=== PATIENT | female | born 1940 | race Caucasian/White ===

== ENCOUNTER 2020-10-20 10:10 | Inpatient (IN) ==
[2020-10-20] MEDS ORDERED: 0.9 % Sodium Chloride 1,000 ML IVC ONE ×3 (10:30→15:40)
[2020-10-20 11:13] LABS: Bacteria,Urine Many per hpf (None-Few); Bilirubin,Urine Negative (Negative); Blood,Urine Negative (Negative); Clarity,Urine Turbid (Clear); Color,Urine Yellow (Yellow); Glucose,Urine (UA) Normal (Normal); Hyaline Casts,Urine Few per lpf (None Seen); Ketones,Urine Negative (Negative); Leukocyte Esterase,Urine Trace (Negative); Mucus,Urine Few per lpf (None-Few); Nitrite,Urine Negative (Negative); PH,Urine 5.5 pH Units (5.0-8.0); Protein,Urine 30 mg/dL (Neg-Trace); RBC,Urine 0-3 per hpf (0-3); Specific Gravity,Urine 1.013 (1.010-1.025); Urobilinogen,Urine Normal (Normal)
[2020-10-20] MEDS ORDERED: cefTRIAXone 1,000 MG in 0.9 % Sodium Chloride Mini Bag 100 ML IVPB ONE (11:44)
[2020-10-20 11:53] LABS: Adenovirus Not Detected (Not Detect); Bordetella Pertussis Not Detected (Not Detect); Chlamydophila pneumoniae Not Detected (Not Detect); Coronavirus 229E Not Detected (Not Detect); Coronavirus HKU1 Not Detected (Not Detect); Coronavirus NL63 Not Detected (Not Detect); Coronavirus OC43 Not Detected (Not Detect); Human Metapneumovirus Not Detected (Not Detect); Human Rhinovirus/Enterovirus Not Detected (Not Detect); Influenza A Subtype 2009 H1 Not Detected (Not Detect); Influenza B Not Detected (Not Detect); Mycoplasma pneumoniae Not Detected (Not Detect); Parainfluenza Virus 1 Not Detected (Not Detect); Parainfluenza Virus 2 Not Detected (Not Detect); Parainfluenza Virus 3 Not Detected (Not Detect); Parainfluenza Virus 4 Not Detected (Not Detect); Respiratory Syncytial Virus Not Detected (Not Detect); SARS-CoV-2 Not Detected (Not Detect)
[2020-10-20 11:54] LABS: Red Cell Distribution Width 15.9 % (11.5-14.5)
[2020-10-20 11:57] LABS: Hematocrit 24.6 % (35.3-44.9); Hemoglobin 6.9 g/dL (11.5-15.4); Lymphocytes # 1.6 K/mcL (0.6-4.6); Mean Corpuscular Hemoglobin 22.5 pg (28.0-33.3); Mean Corpuscular Volume 80.4 fL (83.0-100.0); Platelet Count 257 K/mcL (140-400); Red Blood Count 3.06 M/mcL (3.82-4.97); White Blood Count 5.6 K/mcL (4.3-11.1)
[2020-10-20 11:58] LABS: INR 1.6; Prothrombin Time 18.4 Seconds (9.4-12.1)
[2020-10-20 12:01] LABS: Activated Partial Thrombo Time 27.9 Seconds (26.0-36.0)
[2020-10-20] MEDS ORDERED: Isovue-370 500 ML BOTTLE IVP ONE ×2 (12:10→17:48)
[2020-10-20 12:12] LABS: Alanine Aminotransferase 23 Units/L (7-52); Albumin 3.5 g/dL (3.5-5.7); Alkaline Phosphatase 232 Units/L (34-104); Aspartate Amino Transferase 11 Units/L (13-39); BUN/Creatinine Ratio 20 (6-26); Bilirubin,Direct 0.2 mg/dL (0.0-0.2); Bilirubin,Indirect 0.5 mg/dL (0.0-1.0); Bilirubin,Total 0.7 mg/dL (0.3-1.0); Blood Urea Nitrogen 28 mg/dL (8-23); Calcium 8.9 mg/dL (8.6-10.3); Carbon Dioxide 19 mEq/L (23-29); Chloride 100 mEq/L (98-107); Globulin 3.4 g/dL (2.4-3.5); Glucose 198 mg/dL (70-105); Magnesium 1.9 mg/dL (1.6-2.6); Osmolality,Calculated 291 (280-300); Phosphorous 4.6 mg/dL (2.7-4.5); Potassium 4.6 mEq/L (3.5-5.1); Sodium 135 mEq/L (136-145); Total Protein 6.9 g/dL (6.4-8.9); eGFR For African Americans 44 (> 60); eGFR For Non-African Americans 36 (> 60)
[2020-10-20 12:13] LABS: Troponin I < 0.03 ng/mL (< 0.04)
[2020-10-20 12:41] LABS: Monocytes # 1.7 K/mcL (0.0-1.3); Platelet Estimate Normal (Normal)
[2020-10-20 12:42] LABS: Anisocytosis 1+ (Not Present); Hypochromasia Present (Not Present); Poikilocytosis 1+ (Not Present)
[2020-10-20] MEDS ORDERED: Naloxone 0.4 MG/ML INJ IVP PRN ×2 (14:13→17:48)
[2020-10-20] MEDS ORDERED: *HR* Dextrose 50 % in Water (Vial) 50 ML VIAL IVP PRN ×2 (14:20→17:48)
[2020-10-20] MEDS ORDERED: Dextrose Gel 15 GM/37.5 ML TUBE PO PRN ×4 (14:20→17:48)
[2020-10-20] MEDS ORDERED: D5% in Water 1,000 ML IVC PRN ×2 (14:20→17:48)
[2020-10-20] MEDS ORDERED: *HR* Metoprolol 5 MG/5 ML VIAL IVP PRN ×2 (14:34→17:48)
[2020-10-20] MEDS ORDERED: 0.9 % Sodium Chloride 1,000 ML ONE (15:18)
[2020-10-20] MEDS ORDERED: Cefepime HCl 2,000 MG in Water for inj. (sterile) 20 ML IVP SCH (15:24)
[2020-10-20] MEDS ORDERED: Acetaminophen IV 1,000 MG/100 ML BAG IVPB ONE (15:25)
[2020-10-20] MEDS ORDERED: 0.9 % Sodium Chloride 250 ML ONE (15:26)
[2020-10-20] MEDS ORDERED: Insulin LISPRO 300 UNITS/3 ML VIAL SQ SCH ×2 (16:30→21:00)
[2020-10-20] MEDS ORDERED: Perflutren Lipid Microsphere 1.3 ML in 0.9 % Sodium Chloride 8.7 ML IVP PRN (17:11)
[2020-10-20] MEDS ORDERED: Albuterol 2.5 MG/3 ML NEBULIZER IH PRN (17:18)
[2020-10-20] MEDS ORDERED: Ipratropium/Albuterol Neb 3 ML IH SCH (17:30)
[2020-10-20 18:07] LABS: Troponin I 0.36 ng/mL (< 0.04)
[2020-10-20 18:30] LABS: Folate 16.9 ng/mL (3.0-16.0)
[2020-10-20 18:33] LABS: Vitamin B12 > 1500 pg/mL (250-1100)
[2020-10-20] MEDS ORDERED: Furosemide 40 MG/4 ML VIAL IVP ONE (18:35)
[2020-10-20] MEDS: Cefepime HCl 2,000 MG in Water for inj. (sterile) 20 ML IVP SCH (19:43)
[2020-10-20] MEDS: Insulin LISPRO 300 UNITS/3 ML VIAL SQ SCH (20:45)
[2020-10-20] MEDS ORDERED: Pantoprazole 40 MG VIAL IVP SCH (21:00)
[2020-10-20 23:18] LABS: Hematocrit 28.4 % (35.3-44.9); Hemoglobin 8.3 g/dL (11.5-15.4)
[2020-10-21] MEDS ORDERED: *HR* Heparin 5,000 UNIT/ML VIAL IVP ONE (01:59)
[2020-10-21] MEDS ORDERED: *HR* Heparin 5,000 UNIT/ML VIAL IVP PRN ×2 (01:59)
[2020-10-21] MEDS ORDERED: Heparin 25,000UNIT/250ML 1/2NS 25,000 UNIT/250 ML IV.SOLN IVC SCH (02:00)
[2020-10-21] MEDS ORDERED: *HR* Metoprolol 5 MG/5 ML VIAL IVP ONE (02:09)
[2020-10-21 03:57] LABS: Heparin anti-factor XA UFH < 0.04 IU/mL (0.30-0.70); INR 1.7; Prothrombin Time 19.8 Seconds (9.4-12.1)
[2020-10-21 04:00] LABS: Hemoglobin 8.1 g/dL (11.5-15.4); Immature Platelets 18.2 % (1.1-6.1); Mean Corpuscular Hemoglobin 24.2 pg (28.0-33.3); Mean Corpuscular Volume 80.6 fL (83.0-100.0); Platelet Count 216 K/mcL (140-400); Red Blood Count 3.35 M/mcL (3.82-4.97); Red Cell Distribution Width 16.6 % (11.5-14.5); White Blood Count 3.8 K/mcL (4.3-11.1)
[2020-10-21 04:17] LABS: Calcium 7.9 mg/dL (8.6-10.3); Potassium 3.7 mEq/L (3.5-5.1)
[2020-10-21 04:28] LABS: ABG Base Excess -4 mEq/L (-2 to 3); ABG HCO3 22 mEq/L (21-27); ABG Oxygen Saturation 99 % (95-98); ABG PCO2 43 mmHg (35-45); ABG PH 7.32 pH Units (7.32-7.45); ABG PO2 175 mmHg (85-104); ABG TCO2 23 mEq/L (20-26)
[2020-10-21 05:20] LABS: Anisocytosis 1+ (Not Present); Hypochromasia Present (Not Present); Large Platelets Present (Not Present); Lymphocytes # 1.9 K/mcL (0.6-4.6); Monocytes # 0.5 K/mcL (0.0-1.3); Neutrophils # 1.1 K/mcL (1.6-8.9); Platelet Estimate Normal (Normal); Poikilocytosis 1+ (Not Present)
[2020-10-21] MEDS: Norepinephrine 4 MG/254 ML IV.SOLN IVC SCH ×2 (06:35→11:58)
[2020-10-21] MEDS: Cefepime HCl 2,000 MG in Water for inj. (sterile) 20 ML IVP SCH ×2 (06:36→18:00)
[2020-10-21] MEDS: Aspirin Enteric Coated 81 MG Tablet PO SCH (07:34)
[2020-10-21] MEDS: Insulin LISPRO 300 UNITS/3 ML VIAL SQ SCH ×4 (07:59→20:45)
[2020-10-21] MEDS ORDERED: cefTRIAXone 1,000 MG in Water for inj. (sterile) 20 ML IVP SCH (09:00)
[2020-10-21 09:40] LABS: Hemoglobin 8.3 g/dL (11.5-15.4)
[2020-10-21] MEDS: *HR* Heparin 5,000 UNIT/ML VIAL SQ SCH ×2 (13:49→20:46)
[2020-10-22 04:21] LABS: VBG Ionized Calcium 1.11 mmol/L (1.15-1.35)
[2020-10-22 04:30] LABS: Hemoglobin 8.1 g/dL (11.5-15.4); Immature Platelets 21.8 % (1.1-6.1); Mean Corpuscular Hemoglobin 22.9 pg (28.0-33.3); Mean Corpuscular Volume 76.5 fL (83.0-100.0); Platelet Count 192 K/mcL (140-400); Red Blood Count 3.53 M/mcL (3.82-4.97); Red Cell Distribution Width 16.9 % (11.5-14.5); White Blood Count 3.4 K/mcL (4.3-11.1)
[2020-10-22 04:41] LABS: Calcium 7.7 mg/dL (8.6-10.3); Magnesium 1.9 mg/dL (1.6-2.6); Phosphorous 2.7 mg/dL (2.7-4.5)
[2020-10-22] MEDS: *HR* Heparin 5,000 UNIT/ML VIAL SQ SCH ×3 (05:24→21:10)
[2020-10-22] MEDS: Cefepime HCl 2,000 MG in Water for inj. (sterile) 20 ML IVP SCH (05:24)
[2020-10-22 05:33] LABS: Basophils # 0.1 K/mcL (0.0-0.2); Lymphocytes # 1.4 K/mcL (0.6-4.6); Monocytes # 0.3 K/mcL (0.0-1.3); Neutrophils # 0.9 K/mcL (1.6-8.9)
[2020-10-22 05:34] LABS: Anisocytosis 1+ (Not Present); Hypochromasia Present (Not Present); Large Platelets Present (Not Present); Platelet Estimate Normal (Normal); Poikilocytosis 1+ (Not Present)
[2020-10-22] MEDS: Insulin LISPRO 300 UNITS/3 ML VIAL SQ SCH ×4 (08:44→21:10)
[2020-10-22] MEDS: Aspirin Enteric Coated 81 MG Tablet PO SCH (08:45)
[2020-10-22] MEDS ORDERED: Dextrose Gel 15 GM/37.5 ML TUBE PO PRN ×2 (11:19)
[2020-10-22] MEDS ORDERED: *HR* Metoprolol 5 MG/5 ML VIAL IVP PRN (11:19)
[2020-10-22] MEDS ORDERED: Norepinephrine 4 MG/254 ML IV.SOLN IVC SCH (11:19)
[2020-10-22] MEDS ORDERED: *HR* Dextrose 50 % in Water (Vial) 50 ML VIAL IVP PRN (11:19)
[2020-10-22] MEDS ORDERED: Naloxone 0.4 MG/ML INJ IVP PRN (11:19)
[2020-10-22] MEDS ORDERED: D5% in Water 1,000 ML IVC PRN (11:19)
[2020-10-22] MEDS ORDERED: Perflutren Lipid Microsphere 1.3 ML in 0.9 % Sodium Chloride 8.7 ML IVP PRN (13:24)
[2020-10-22] MEDS: Saline Nasal Spray 44 ML BOTTLE NS PRN (16:36)
[2020-10-22] MEDS: cefTRIAXone 1,000 MG in Water for inj. (sterile) 10 ML IVP SCH (16:36)
[2020-10-22] MEDS ORDERED: Cefepime HCl 2,000 MG in Water for inj. (sterile) 20 ML IVP SCH (18:00)
[2020-10-22] MEDS: Metoprolol XL (24 HR) Succ 50 MG TAB.ER.24H PO SCH (21:10)
[2020-10-23 01:54] LABS: Hemoglobin 8.4 g/dL (11.5-15.4)
[2020-10-23 01:56] LABS: Hematocrit 27.6 % (35.3-44.9); Immature Platelets 20.8 % (1.1-6.1); Mean Corpuscular HGB Conc 30.4 g/dL (31.6-35.5); Mean Corpuscular Hemoglobin 23.3 pg (28.0-33.3); Mean Corpuscular Volume 76.7 fL (83.0-100.0); Platelet Count 173 K/mcL (140-400); Red Cell Distribution Width 16.6 % (11.5-14.5); White Blood Count 2.3 K/mcL (4.3-11.1)
[2020-10-23 02:07] LABS: BUN/Creatinine Ratio 43 (6-26); Blood Urea Nitrogen 44 mg/dL (8-23); Calcium 7.8 mg/dL (8.6-10.3); Carbon Dioxide 20 mEq/L (23-29); Chloride 104 mEq/L (98-107); Glucose 183 mg/dL (70-105); Osmolality,Calculated 290 (280-300); Potassium 4.3 mEq/L (3.5-5.1); Sodium 132 mEq/L (136-145); eGFR For African Americans > 60 (> 60); eGFR For Non-African Americans 52 (> 60)
[2020-10-23] MEDS: *HR* Heparin 5,000 UNIT/ML VIAL SQ SCH ×3 (05:28→19:55)
[2020-10-23] MEDS: Aspirin Enteric Coated 81 MG Tablet PO SCH (08:20)
[2020-10-23] MEDS: Insulin LISPRO 300 UNITS/3 ML VIAL SQ SCH ×4 (08:21→19:44)
[2020-10-23 11:01] LABS: Magnesium 2.1 mg/dL (1.6-2.6); Phosphorous 3.8 mg/dL (2.7-4.5)
[2020-10-23] MEDS: Saline Nasal Spray 44 ML BOTTLE NS PRN (11:05)
[2020-10-23] MEDS: Calcium Gluconate 1gm/50mL 1 GM/50 ML BAG IVPB SCH ×2 (11:08→12:51)
[2020-10-23] MEDS: Multivit/Ca/Min/Fe/FA 1 TAB TABLET PO SCH (11:14)
[2020-10-23] MEDS ORDERED: Iron Sucrose Complex 400 MG in 0.9 % Sodium Chloride 250 ML IVPB ONE (12:14)
[2020-10-23 13:39] LABS: Lambda Qnt Free Light Chains 37.96 mg/L (5.71-26.30)
[2020-10-23] MEDS: Ringers Solution, Lactated 1,000 ML IVC SCH (13:39)
[2020-10-23 15:44] LABS: Kappa Qnt Free Light Chains 34.93 mg/L (3.30-19.40)
[2020-10-23] MEDS: cefTRIAXone 1,000 MG in Water for inj. (sterile) 10 ML IVP SCH (17:22)
[2020-10-23] MEDS: Chlorhexidine Rinse 15 ML MOUTHWASH MM SCH (19:54)
[2020-10-23] MEDS: Metoprolol XL (24 HR) Succ 50 MG TAB.ER.24H PO SCH (19:54)
[2020-10-23] MEDS ORDERED: Ipratropium/Albuterol Neb 3 ML IH PRN (21:02)
[2020-10-23] MEDS ORDERED: Benzonatate 100 MG CAPSULE PO PRN (21:03)
[2020-10-24] MEDS: *HR* Heparin 5,000 UNIT/ML VIAL SQ SCH ×3 (05:40→23:10)
[2020-10-24 07:32] LABS: Basophils % 0.7 %; Hematocrit 25.6 % (35.3-44.9); Hemoglobin 7.6 g/dL (11.5-15.4); Immature Granulocytes % 8.2 % (0-4); Immature Platelets 14.2 % (1.1-6.1); Lymphocytes # 0.5 K/mcL (0.6-4.6); Lymphocytes % 38.8 %; Mean Corpuscular HGB Conc 29.7 g/dL (31.6-35.5); Mean Corpuscular Hemoglobin 23.5 pg (28.0-33.3); Monocytes # 0.2 K/mcL (0.0-1.3); Monocytes % 17.2 %; Neutrophils # 0.5 K/mcL (1.6-8.9); Nucleated Red Blood Cells 3.7 /100 WBC (0); Platelet Count 168 K/mcL (140-400); Red Blood Count 3.24 M/mcL (3.82-4.97); Red Cell Distribution Width 16.6 % (11.5-14.5); Segmented Neutrophils % 35.1 %; White Blood Count 1.3 K/mcL (4.3-11.1)
[2020-10-24 07:51] LABS: Alanine Aminotransferase 13 Units/L (7-52); Albumin 2.3 g/dL (3.5-5.7); Albumin/Globulin Ratio 0.9 (1.1-2.2); Alkaline Phosphatase 180 Units/L (34-104); Aspartate Amino Transferase 18 Units/L (13-39); BUN/Creatinine Ratio 45 (6-26); Bilirubin,Total 0.4 mg/dL (0.3-1.0); Blood Urea Nitrogen 35 mg/dL (8-23); Calcium 8.1 mg/dL (8.6-10.3); Carbon Dioxide 22 mEq/L (23-29); Chloride 109 mEq/L (98-107); Globulin 2.6 g/dL (2.4-3.5); Glucose 163 mg/dL (70-105); Magnesium 1.8 mg/dL (1.6-2.6); Osmolality,Calculated 296 (280-300); Potassium 4.3 mEq/L (3.5-5.1); Sodium 137 mEq/L (136-145); Total Protein 4.9 g/dL (6.4-8.9); eGFR For African Americans > 60 (> 60); eGFR For Non-African Americans > 60 (> 60)
[2020-10-24] MEDS: Aspirin Enteric Coated 81 MG Tablet PO SCH (07:55)
[2020-10-24] MEDS: Insulin LISPRO 300 UNITS/3 ML VIAL SQ SCH ×4 (07:55→21:54)
[2020-10-24] MEDS: Chlorhexidine Rinse 15 ML MOUTHWASH MM SCH ×2 (07:55→21:54)
[2020-10-24] MEDS: Multivit/Ca/Min/Fe/FA 1 TAB TABLET PO SCH (07:55)
[2020-10-24] MEDS ORDERED: Pantoprazole 40 MG VIAL IVP SCH (08:54)
[2020-10-24] MEDS: Ringers Solution, Lactated 1,000 ML IVC SCH (10:49)
[2020-10-24 11:13] LABS: Anisocytosis 1+ (Not Present); Hypochromasia Present (Not Present); Microcytosis Present (Not Present); Platelet Estimate Decreased (Normal); Poikilocytosis 1+ (Not Present)
[2020-10-24 11:14] LABS: Ovalocytes 1+ (Not Present)
[2020-10-24] MEDS: polyethylene glycoL 3350 17 GM POWD.PACK PO SCH ×2 (16:01→21:53)
[2020-10-24] MEDS: cefTRIAXone 1,000 MG in Water for inj. (sterile) 10 ML IVP SCH (16:01)
[2020-10-24] MEDS: Metoprolol XL (24 HR) Succ 50 MG TAB.ER.24H PO SCH (21:53)
[2020-10-24 23:06] LABS: Alpha 2 Globulin (PEP) 0.84 g/dL (0.48-1.05); Beta Globulin (PEP) 0.56 g/dL (0.48-1.10)
[2020-10-25] MEDS: *HR* Heparin 5,000 UNIT/ML VIAL SQ SCH ×3 (05:15→21:58)
[2020-10-25 05:16] LABS: Mean Platelet Volume 13.6 fL (9.4-12.4)
[2020-10-25 05:18] LABS: Hematocrit 26.6 % (35.3-44.9); Hemoglobin 7.7 g/dL (11.5-15.4); Immature Granulocytes % 7.3 % (0-4); Immature Platelets 13.1 % (1.1-6.1); Lymphocytes # 0.6 K/mcL (0.6-4.6); Lymphocytes % 50.8 %; Mean Corpuscular HGB Conc 28.9 g/dL (31.6-35.5); Mean Corpuscular Hemoglobin 23.3 pg (28.0-33.3); Mean Corpuscular Volume 80.6 fL (83.0-100.0); Monocytes # 0.2 K/mcL (0.0-1.3); Monocytes % 18.5 %; Neutrophils # 0.3 K/mcL (1.6-8.9); Platelet Count 174 K/mcL (140-400); Red Cell Distribution Width 16.8 % (11.5-14.5); Segmented Neutrophils % 23.4 %; White Blood Count 1.2 K/mcL (4.3-11.1)
[2020-10-25 05:23] LABS: Alanine Aminotransferase 20 Units/L (7-52); Albumin 2.4 g/dL (3.5-5.7); Albumin/Globulin Ratio 0.9 (1.1-2.2); Alkaline Phosphatase 160 Units/L (34-104); Aspartate Amino Transferase 23 Units/L (13-39); BUN/Creatinine Ratio 35 (6-26); Bilirubin,Total 0.4 mg/dL (0.3-1.0); Blood Urea Nitrogen 26 mg/dL (8-23); Calcium 8.2 mg/dL (8.6-10.3); Carbon Dioxide 26 mEq/L (23-29); Chloride 107 mEq/L (98-107); Globulin 2.6 g/dL (2.4-3.5); Glucose 127 mg/dL (70-105); Magnesium 1.6 mg/dL (1.6-2.6); Osmolality,Calculated 292 (280-300); Phosphorous 3.5 mg/dL (2.7-4.5); Potassium 4.3 mEq/L (3.5-5.1); Sodium 138 mEq/L (136-145); eGFR For African Americans > 60 (> 60); eGFR For Non-African Americans > 60 (> 60)
[2020-10-25 05:55] LABS: Anisocytosis 2+ (Not Present); Hypochromasia Present (Not Present); Microcytosis Present (Not Present); Platelet Estimate Normal (Normal); Poikilocytosis 1+ (Not Present)
[2020-10-25] MEDS: Insulin LISPRO 300 UNITS/3 ML VIAL SQ SCH ×4 (09:03→21:57)
[2020-10-25] MEDS: polyethylene glycoL 3350 17 GM POWD.PACK PO SCH ×2 (09:04→21:58)
[2020-10-25] MEDS: Chlorhexidine Rinse 15 ML MOUTHWASH MM SCH ×2 (09:04→21:57)
[2020-10-25] MEDS: Aspirin Enteric Coated 81 MG Tablet PO SCH (09:04)
[2020-10-25] MEDS: Multivit/Ca/Min/Fe/FA 1 TAB TABLET PO SCH (09:04)
[2020-10-25 09:25] LABS: IFE Reflexed NOT DONE
[2020-10-25 13:14] LABS: BCR-ABL1 Specimen Source NOT SPECIFIED
[2020-10-25] MEDS ORDERED: *HR* FentaNYL (PF) 100 MCG/2 ML VIAL ONE (13:35)
[2020-10-25] MEDS ORDERED: *HR* Midazolam HCl 2 MG/2 ML VIAL ONE (13:35)
[2020-10-25] MEDS ORDERED: 0.9 % Sodium Chloride 500 ML ONE (13:36)
[2020-10-25] MEDS ORDERED: *HR* Midazolam HCl 2 MG/2 ML VIAL IVP ONE (13:43)
[2020-10-25] MEDS ORDERED: *HR* FentaNYL (PF) 100 MCG/2 ML VIAL IVP ONE (13:43)
[2020-10-25] MEDS: ceFAZolin 2,000 MG in 0.9 % Sodium Chloride 100 ML IVPB SCH (17:50)
[2020-10-25] MEDS: Metoprolol XL (24 HR) Succ 50 MG TAB.ER.24H PO SCH (21:57)
[2020-10-26] MEDS ORDERED: Melatonin 3 MG TABLET PO PRN (00:32)
[2020-10-26] MEDS: ceFAZolin 2,000 MG in 0.9 % Sodium Chloride 100 ML IVPB SCH ×4 (00:38→23:53)
[2020-10-26] MEDS: Acetaminophen 325 MG TABLET PO PRN ×3 (00:42→15:33)
[2020-10-26] MEDS: *HR* Heparin 5,000 UNIT/ML VIAL SQ SCH ×3 (06:07→20:20)
[2020-10-26 07:59] LABS: Hematocrit 24.9 % (35.3-44.9); Hemoglobin 7.5 g/dL (11.5-15.4); Immature Platelets 12.3 % (1.1-6.1); Lymphocytes # 0.5 K/mcL (0.6-4.6); Mean Corpuscular HGB Conc 30.1 g/dL (31.6-35.5); Mean Corpuscular Hemoglobin 24.4 pg (28.0-33.3); Mean Corpuscular Volume 81.1 fL (83.0-100.0); Mean Platelet Volume 13.1 fL (9.4-12.4); Neutrophils # 0.3 K/mcL (1.6-8.9); Nucleated Red Blood Cells 2.2 /100 WBC (0); Platelet Count 163 K/mcL (140-400); Red Blood Count 3.07 M/mcL (3.82-4.97); Red Cell Distribution Width 16.4 % (11.5-14.5)
[2020-10-26] MEDS: Insulin LISPRO 300 UNITS/3 ML VIAL SQ SCH ×4 (08:05→20:14)
[2020-10-26 08:15] LABS: Alanine Aminotransferase 19 Units/L (7-52); Albumin 2.4 g/dL (3.5-5.7); Alkaline Phosphatase 159 Units/L (34-104); Aspartate Amino Transferase 24 Units/L (13-39); BUN/Creatinine Ratio 28 (6-26); Bilirubin,Total 0.4 mg/dL (0.3-1.0); Blood Urea Nitrogen 19 mg/dL (8-23); Calcium 8.2 mg/dL (8.6-10.3); Carbon Dioxide 27 mEq/L (23-29); Chloride 105 mEq/L (98-107); Globulin 2.4 g/dL (2.4-3.5); Glucose 104 mg/dL (70-105); Magnesium 1.8 mg/dL (1.6-2.6); Osmolality,Calculated 287 (280-300); Phosphorous 3.9 mg/dL (2.7-4.5); Potassium 4.3 mEq/L (3.5-5.1); Sodium 137 mEq/L (136-145); Total Protein 4.8 g/dL (6.4-8.9); eGFR For African Americans > 60 (> 60); eGFR For Non-African Americans > 60 (> 60)
[2020-10-26 09:13] LABS: White Blood Count 0.9 K/mcL (4.3-11.1)
[2020-10-26] MEDS: Chlorhexidine Rinse 15 ML MOUTHWASH MM SCH ×2 (09:33→20:20)
[2020-10-26] MEDS: Aspirin Enteric Coated 81 MG Tablet PO SCH (09:34)
[2020-10-26] MEDS: Multivit/Ca/Min/Fe/FA 1 TAB TABLET PO SCH (09:34)
[2020-10-26 09:37] LABS: Large Platelets Present (Not Present); Platelet Estimate Normal (Normal); Poikilocytosis 1+ (Not Present); Polychromasia 1+ (Not Present); Reactive Lymphocytes Present (Not Present)
[2020-10-26] MEDS: polyethylene glycoL 3350 17 GM POWD.PACK PO SCH ×2 (09:37→20:21)
[2020-10-26] MEDS: Metoprolol XL (24 HR) Succ 50 MG TAB.ER.24H PO SCH (20:21)
[2020-10-27] MEDS: *HR* Heparin 5,000 UNIT/ML VIAL SQ SCH (05:38)
[2020-10-27] MEDS: Insulin LISPRO 300 UNITS/3 ML VIAL SQ SCH ×2 (08:40→12:15)
[2020-10-27] MEDS: polyethylene glycoL 3350 17 GM POWD.PACK PO SCH (08:45)
[2020-10-27] MEDS: Chlorhexidine Rinse 15 ML MOUTHWASH MM SCH (08:51)
[2020-10-27] MEDS: Aspirin Enteric Coated 81 MG Tablet PO SCH (08:51)
[2020-10-27] MEDS: Multivit/Ca/Min/Fe/FA 1 TAB TABLET PO SCH (08:53)
[2020-10-27] MEDS: ceFAZolin 2,000 MG in 0.9 % Sodium Chloride 100 ML IVPB SCH (08:57)
[2020-10-27 11:48] VITALS: BP 160/82
== END 2020-10-27 12:15 | disposition short-term general hospital (02) | DRG 871 ==
LOC: EMEROOARM 10:10 → 3ANU 10:10 → ICNU 17:07 → SUATTDRO 22:16 → 3NENU 10-23 18:58
PROVIDERS: ADMIT Internal Medicine; ATTEND General Practice

== ENCOUNTER 2020-11-22 12:59 | Observation (INO) ==
[2020-11-22] MEDS ORDERED: 0.9 % Sodium Chloride 1,000 ML IVC ONE (13:32)
[2020-11-22 13:53] LABS: VBG HCO3 26 mEq/L (21-27); VBG PCO2 39 mmHg (41-51); VBG PH 7.44 pH Units (7.32-7.42); VBG PO2 140 mmHg (25-50)
[2020-11-22 13:59] LABS: INR 1.3
[2020-11-22 14:01] LABS: Hematocrit 21.4 % (35.3-44.9); Hemoglobin 6.8 g/dL (11.5-15.4); Immature Platelets 10.2 % (1.1-6.1); Lymphocytes # 0.2 K/mcL (0.6-4.6); Lymphocytes % 94.1 %; Mean Corpuscular HGB Conc 31.8 g/dL (31.6-35.5); Mean Corpuscular Hemoglobin 26.1 pg (28.0-33.3); Red Blood Count 2.61 M/mcL (3.82-4.97); Segmented Neutrophils % 5.9 %
[2020-11-22 14:02] LABS: Activated Partial Thrombo Time 28.6 Seconds (26.0-36.0)
[2020-11-22 14:10] LABS: Bilirubin,Urine Negative (Negative); Blood,Urine Negative (Negative); Clarity,Urine Clear (Clear); Color,Urine Light-Yellow (Yellow); Glucose,Urine (UA) Normal (Normal); Ketones,Urine Negative (Negative); Leukocyte Esterase,Urine Negative (Negative); Nitrite,Urine Negative (Negative); Protein,Urine Negative (Neg-Trace); Specific Gravity,Urine 1.009 (1.010-1.025); Urobilinogen,Urine Normal (Normal)
[2020-11-22 14:30] LABS: Platelet Count 12 K/mcL (140-400); White Blood Count 0.2 K/mcL (4.3-11.1)
[2020-11-22] MEDS ORDERED: Piperacillin/Tazobactam 3.375 GM in 0.9 % Sodium Chloride Mini Bag 100 ML IVPB ONE (14:31)
[2020-11-22 14:36] LABS: Alanine Aminotransferase 5 Units/L (7-52); Albumin 3.6 g/dL (3.5-5.7); Albumin/Globulin Ratio 1.3 (1.1-2.2); Alkaline Phosphatase 81 Units/L (34-104); Aspartate Amino Transferase 7 Units/L (13-39); BUN/Creatinine Ratio 17 (6-26); Bilirubin,Direct 0.3 mg/dL (0.0-0.2); Bilirubin,Indirect 0.9 mg/dL (0.0-1.0); Bilirubin,Total 1.2 mg/dL (0.3-1.0); Blood Urea Nitrogen 10 mg/dL (8-23); Calcium 8.8 mg/dL (8.6-10.3); Carbon Dioxide 24 mEq/L (23-29); Chloride 99 mEq/L (98-107); Globulin 2.7 g/dL (2.4-3.5); Glucose 171 mg/dL (70-105); Magnesium 1.4 mg/dL (1.6-2.6); Osmolality,Calculated 277 (280-300); Phosphorous 2.9 mg/dL (2.7-4.5); Potassium 3.9 mEq/L (3.5-5.1); Sodium 132 mEq/L (136-145); Total Protein 6.3 g/dL (6.4-8.9); Troponin I < 0.03 ng/mL (< 0.04); eGFR For African Americans > 60 (> 60); eGFR For Non-African Americans > 60 (> 60)
[2020-11-22 14:55] LABS: Platelet Estimate Marked Decrease (Normal)
[2020-11-22] MEDS ORDERED: Mag Hydrox/Al Hydrox/Simeth 30 ML UDC PO PRN (16:11)
[2020-11-22] MEDS ORDERED: Ondansetron ODT 4 MG TAB.RAPDIS SL PRN (16:11)
[2020-11-22] MEDS ORDERED: Naloxone 0.4 MG/ML INJ IVP PRN (16:11)
[2020-11-22] MEDS ORDERED: *HR* Dextrose 50 % in Water (Vial) 50 ML VIAL IVP PRN (17:10)
[2020-11-22] MEDS ORDERED: D5% in Water 1,000 ML IVC PRN (17:10)
[2020-11-22] MEDS ORDERED: Dextrose Gel 15 GM/37.5 ML TUBE PO PRN ×2 (17:10)
[2020-11-22 17:31] LABS: C-Reactive Protein 14 mg/L (Less than 10); Lactate Dehydrogenase 122 Units/L (140-271)
[2020-11-22] MEDS: 0.9 % Sodium Chloride 500 ML IVC ONE (17:44)
[2020-11-22 17:46] LABS: Ferritin 569 ng/mL (10-120)
[2020-11-22 20:05] LABS: Fibrinogen 384 mg/dL (169-393)
[2020-11-22] MEDS: Insulin LISPRO 300 UNITS/3 ML VIAL SUBQ SCH (20:07)
[2020-11-22 20:11] LABS: D-Dimer 1345 ng/mLFEU (0-500)
[2020-11-22 20:14] LABS: Hematocrit 20.5 % (35.3-44.9); Hemoglobin 6.9 g/dL (11.5-15.4); Immature Granulocytes % 16.7 % (0-4); Immature Platelets 7.8 % (1.1-6.1); Lymphocytes # 0.1 K/mcL (0.6-4.6); Lymphocytes % 66.7 %; Mean Corpuscular HGB Conc 33.7 g/dL (31.6-35.5); Mean Corpuscular Hemoglobin 27.3 pg (28.0-33.3); Monocytes % 5.6 %; Red Blood Count 2.53 M/mcL (3.82-4.97); Red Cell Distribution Width 14.8 % (11.5-14.5)
[2020-11-22 20:21] LABS: White Blood Count 0.2 K/mcL (4.3-11.1)
[2020-11-22 20:22] LABS: Platelet Count 10 K/mcL (140-400)
[2020-11-22 20:50] LABS: Platelet Estimate Marked Decrease (Normal)
[2020-11-22 23:19] LABS: Adenovirus Not Detected (Not Detect); Bordetella Pertussis Not Detected (Not Detect); Chlamydophila pneumoniae Not Detected (Not Detect); Coronavirus 229E Not Detected (Not Detect); Coronavirus HKU1 Not Detected (Not Detect); Coronavirus NL63 Not Detected (Not Detect); Coronavirus OC43 Not Detected (Not Detect); Human Metapneumovirus Not Detected (Not Detect); Human Rhinovirus/Enterovirus Not Detected (Not Detect); Influenza A Subtype 2009 H1 Not Detected (Not Detect); Influenza B Not Detected (Not Detect); Mycoplasma pneumoniae Not Detected (Not Detect); Parainfluenza Virus 1 Not Detected (Not Detect); Parainfluenza Virus 2 Not Detected (Not Detect); Parainfluenza Virus 3 Not Detected (Not Detect); Parainfluenza Virus 4 Not Detected (Not Detect); Respiratory Syncytial Virus Not Detected (Not Detect); SARS-CoV-2 Not Detected (Not Detect)
[2020-11-23] MEDS ORDERED: Acetaminophen 325 MG TABLET PO PRN (00:01)
[2020-11-23] MEDS: Piperacillin/Tazobactam 3.375 GM in 0.9 % Sodium Chloride Mini Bag 100 ML IVPB SCH ×3 (00:12→16:10)
[2020-11-23 02:19] LABS: Hematocrit 18.1 % (35.3-44.9); Immature Platelets 8.7 % (1.1-6.1); Mean Corpuscular HGB Conc 33.1 g/dL (31.6-35.5); Mean Corpuscular Volume 81.5 fL (83.0-100.0); Red Blood Count 2.22 M/mcL (3.82-4.97); Red Cell Distribution Width 14.8 % (11.5-14.5)
[2020-11-23 02:20] LABS: Lymphocytes # 0.1 K/mcL (0.6-4.6)
[2020-11-23 02:22] LABS: Platelet Count 7 K/mcL (140-400); White Blood Count 0.1 K/mcL (4.3-11.1)
[2020-11-23 02:28] LABS: Alanine Aminotransferase 5 Units/L (7-52); Albumin/Globulin Ratio 1.2 (1.1-2.2); Alkaline Phosphatase 72 Units/L (34-104); Aspartate Amino Transferase 11 Units/L (13-39); BUN/Creatinine Ratio 19 (6-26); Bilirubin,Total 1.7 mg/dL (0.3-1.0); Blood Urea Nitrogen 13 mg/dL (8-23); Calcium 7.8 mg/dL (8.6-10.3); Carbon Dioxide 21 mEq/L (23-29); Chloride 100 mEq/L (98-107); Globulin 2.5 g/dL (2.4-3.5); Glucose 173 mg/dL (70-105); Magnesium 1.4 mg/dL (1.6-2.6); Osmolality,Calculated 274 (280-300); Phosphorous 2.3 mg/dL (2.7-4.5); Potassium 3.1 mEq/L (3.5-5.1); Sodium 130 mEq/L (136-145); Total Protein 5.5 g/dL (6.4-8.9); eGFR For African Americans > 60 (> 60); eGFR For Non-African Americans > 60 (> 60)
[2020-11-23 02:38] LABS: Anisocytosis 1+ (Not Present); Hypochromasia Present (Not Present); Platelet Estimate Marked Decrease (Normal); Poikilocytosis 1+ (Not Present)
[2020-11-23] MEDS ORDERED: 0.9 % Sodium Chloride 1,000 ML IVC ONE (03:42)
[2020-11-23] MEDS ORDERED: 0.9 % Sodium Chloride 1,000 ML ONE (03:44)
[2020-11-23] MEDS ORDERED: 0.9 % Sodium Chloride 250 ML ONE ×2 (04:13→20:36)
[2020-11-23] MEDS ORDERED: 0.9 % Sodium Chloride 500 ML IVC ONE ×2 (05:03→12:07)
[2020-11-23] MEDS: 0.9 % Sodium Chloride 500 ML IVC ONE (05:08)
[2020-11-23] MEDS ORDERED: Potassium Phosphate 44 MEQ in 0.9 % Sodium Chloride 250 ML IVPB ONE (07:20)
[2020-11-23] MEDS ORDERED: 0.9 % Sodium Chloride 250 ML IVC SCH (07:30)
[2020-11-23] MEDS ORDERED: Isovue-370 500 ML BOTTLE IVP ONE (07:34)
[2020-11-23] MEDS ORDERED: 0.9 % Sodium Chloride 1,000 ML IVC SCH (07:45)
[2020-11-23] MEDS ORDERED: Cefepime HCl 2,000 MG in Water for inj. (sterile) 20 ML IVP SCH (08:00)
[2020-11-23 08:27] LABS: Hemoglobin 7.5 g/dL (11.5-15.4); Red Cell Distribution Width 14.7 % (11.5-14.5)
[2020-11-23 08:30] LABS: Hematocrit 23.1 % (35.3-44.9); Immature Platelets 10.5 % (1.1-6.1); Lymphocytes % 93.3 %; Mean Corpuscular HGB Conc 32.5 g/dL (31.6-35.5); Mean Corpuscular Hemoglobin 26.8 pg (28.0-33.3); Mean Corpuscular Volume 82.5 fL (83.0-100.0); Segmented Neutrophils % 6.7 %
[2020-11-23 08:32] LABS: Lymphocytes # 0.2 K/mcL (0.6-4.6)
[2020-11-23] MEDS: Insulin LISPRO 300 UNITS/3 ML VIAL SUBQ SCH ×4 (08:32→20:52)
[2020-11-23] MEDS: Fluconazole 100 MG TABLET PO SCH (08:35)
[2020-11-23 08:37] LABS: Platelet Count 6 K/mcL (140-400); White Blood Count 0.2 K/mcL (4.3-11.1)
[2020-11-23] MEDS ORDERED: NON-FORMULARY MEDICATION 1 EACH EACH (Fluconazole [Diflucan] 200 MG) PO SCH (09:00)
[2020-11-23 09:52] LABS: Platelet Estimate Marked Decrease (Normal)
[2020-11-23 09:53] LABS: Anisocytosis 1+ (Not Present)
[2020-11-23] MEDS: diazePAM 5 MG TABLET PO SCH ×2 (13:30→20:49)
[2020-11-23 20:13] LABS: Hematocrit 24.7 % (35.3-44.9); Hemoglobin 8.2 g/dL (11.5-15.4); Immature Platelets 5.4 % (1.1-6.1); Mean Corpuscular HGB Conc 33.2 g/dL (31.6-35.5); Mean Corpuscular Hemoglobin 27.7 pg (28.0-33.3); Mean Corpuscular Volume 83.4 fL (83.0-100.0); Red Blood Count 2.96 M/mcL (3.82-4.97); Red Cell Distribution Width 15.6 % (11.5-14.5)
[2020-11-23 20:16] LABS: Platelet Count 5 K/mcL (140-400); White Blood Count 0.1 K/mcL (4.3-11.1)
[2020-11-24] MEDS: Piperacillin/Tazobactam 3.375 GM in 0.9 % Sodium Chloride Mini Bag 100 ML IVPB SCH ×3 (00:37→15:34)
[2020-11-24 03:34] LABS: Mean Corpuscular Volume 82.4 fL (83.0-100.0)
[2020-11-24 03:36] LABS: Immature Platelets 3.4 % (1.1-6.1); Mean Corpuscular HGB Conc 33.3 g/dL (31.6-35.5); Mean Corpuscular Hemoglobin 27.5 pg (28.0-33.3); Red Blood Count 2.55 M/mcL (3.82-4.97); Red Cell Distribution Width 15.5 % (11.5-14.5)
[2020-11-24 03:40] LABS: White Blood Count 0.1 K/mcL (4.3-11.1)
[2020-11-24 03:41] LABS: Platelet Count 7 K/mcL (140-400)
[2020-11-24 03:50] LABS: Alanine Aminotransferase 7 Units/L (7-52); Albumin 2.7 g/dL (3.5-5.7); Albumin/Globulin Ratio 1.1 (1.1-2.2); Alkaline Phosphatase 60 Units/L (34-104); Aspartate Amino Transferase 17 Units/L (13-39); BUN/Creatinine Ratio 23 (6-26); Blood Urea Nitrogen 17 mg/dL (8-23); Calcium 7.2 mg/dL (8.6-10.3); Carbon Dioxide 22 mEq/L (23-29); Chloride 103 mEq/L (98-107); Globulin 2.4 g/dL (2.4-3.5); Glucose 106 mg/dL (70-105); Osmolality,Calculated 280 (280-300); Sodium 134 mEq/L (136-145); Total Protein 5.1 g/dL (6.4-8.9); eGFR For African Americans > 60 (> 60); eGFR For Non-African Americans > 60 (> 60)
[2020-11-24] MEDS ORDERED: 0.9 % Sodium Chloride 250 ML ONE (07:40)
[2020-11-24] MEDS: Fluconazole 100 MG TABLET PO SCH (08:04)
[2020-11-24] MEDS: diazePAM 5 MG TABLET PO SCH (08:04)
[2020-11-24] MEDS: Insulin LISPRO 300 UNITS/3 ML VIAL SUBQ SCH ×3 (08:05→17:13)
[2020-11-24 08:09] LABS: Hematocrit 20.3 % (35.3-44.9); Hemoglobin 6.8 g/dL (11.5-15.4); Immature Platelets 5.2 % (1.1-6.1); Lymphocytes # 0.1 K/mcL (0.6-4.6); Mean Corpuscular HGB Conc 33.5 g/dL (31.6-35.5); Mean Corpuscular Hemoglobin 27.6 pg (28.0-33.3); Mean Corpuscular Volume 82.5 fL (83.0-100.0); Red Blood Count 2.46 M/mcL (3.82-4.97); Red Cell Distribution Width 15.4 % (11.5-14.5)
[2020-11-24 08:28] LABS: Magnesium 1.9 mg/dL (1.6-2.6); Phosphorous 3.7 mg/dL (2.7-4.5)
[2020-11-24 08:29] LABS: Platelet Count 4 K/mcL (140-400); White Blood Count 0.1 K/mcL (4.3-11.1)
[2020-11-24] MEDS ORDERED: polyethylene glycoL 3350 17 GM POWD.PACK PO PRN (08:48)
[2020-11-24] MEDS ORDERED: Metoprolol XL (24 HR) Succ 50 MG TAB.ER.24H PO SCH (09:00)
[2020-11-24 09:13] LABS: Platelet Estimate Marked Decrease (Normal)
[2020-11-24] MEDS ORDERED: Furosemide 40 MG/4 ML VIAL IVP ONE (12:18)
[2020-11-24] MEDS ORDERED: Potassium Chloride 40 MEQ, Lidocaine 1% 2 ML in 0.9 % Sodium Chloride 500 ML IVPB ONE (12:19)
[2020-11-24] MEDS ORDERED: Acetaminophen IV 1,000 MG/100 ML BAG IVPB ONE (13:59)
[2020-11-24] MEDS ORDERED: 0.9 % Sodium Chloride 500 ML IVC ONE (17:19)
[2020-11-24] MEDS ORDERED: 0.9 % Sodium Chloride 500 ML ONE (17:22)
[2020-11-24 17:56] LABS: Hemoglobin 6.6 g/dL (11.5-15.4)
[2020-11-24 17:58] LABS: Immature Platelets 3.6 % (1.1-6.1); Mean Corpuscular Hemoglobin 27.7 pg (28.0-33.3); Red Blood Count 2.38 M/mcL (3.82-4.97); Red Cell Distribution Width 15.3 % (11.5-14.5)
[2020-11-24 18:02] LABS: INR 1.5; Prothrombin Time 17.2 Seconds (9.4-12.1)
[2020-11-24 18:04] LABS: Activated Partial Thrombo Time 33.8 Seconds (26.0-36.0)
[2020-11-24 18:05] LABS: Lymphocytes # 0.1 K/mcL (0.6-4.6)
[2020-11-24 18:08] LABS: Platelet Count 5 K/mcL (140-400); White Blood Count 0.1 K/mcL (4.3-11.1)
[2020-11-24 18:21] LABS: Microcytosis Present (Not Present); Ovalocytes 1+ (Not Present); Platelet Estimate Marked Decrease (Normal)
[2020-11-24 18:22] LABS: Tear Drop Cells 1+ (Not Present)
[2020-11-24 19:55] VITALS: BP 112/85
[2020-11-24] MEDS ORDERED: Cefepime HCl 2,000 MG in Water for inj. (sterile) 20 ML IVP SCH (21:00)
== END 2020-11-24 21:00 | disposition short-term general hospital (02) | DRG 871 ==
LOC: 3ANU 12:59 → EMEROOARM 12:59 → SUATTDRO 17:46 → 3ANU 18:00 → 2NNU 11-24 15:10
PROVIDERS: ADMIT Family Medicine; ATTEND Family Medicine

== ENCOUNTER 2021-01-02 18:35 | Inpatient (IN) ==
[2021-01-02] MEDS ORDERED: 0.9 % Sodium Chloride 1,000 ML IVC ONE (19:21)
[2021-01-02 19:52] LABS: Hemoglobin 7.4 g/dL (11.5-15.4); Red Cell Distribution Width 13.2 % (11.5-14.5)
[2021-01-02 19:54] LABS: Immature Granulocytes % 5.1 % (0-4); Immature Platelets 0.6 % (1.1-6.1); Lymphocytes # 0.6 K/mcL (0.6-4.6); Lymphocytes % 74.7 %; Mean Corpuscular HGB Conc 33.6 g/dL (31.6-35.5); Mean Corpuscular Hemoglobin 28.6 pg (28.0-33.3); Mean Corpuscular Volume 84.9 fL (83.0-100.0); Mean Platelet Volume 8.8 fL (9.4-12.4); Monocytes # 0.1 K/mcL (0.0-1.3); Monocytes % 11.4 %; Neutrophils # 0.1 K/mcL (1.6-8.9); Red Blood Count 2.59 M/mcL (3.82-4.97); Segmented Neutrophils % 8.8 %
[2021-01-02 20:00] LABS: Platelet Count 9 K/mcL (140-400); White Blood Count 0.8 K/mcL (4.3-11.1)
[2021-01-02] MEDS ORDERED: Isovue-370 500 ML BOTTLE IVP ONE (20:06)
[2021-01-02 20:10] LABS: BUN/Creatinine Ratio 34 (6-26); Blood Urea Nitrogen 24 mg/dL (8-23); Calcium 9.8 mg/dL (8.6-10.3); Carbon Dioxide 23 mEq/L (23-29); Chloride 96 mEq/L (98-107); Glucose 125 mg/dL (70-105); Osmolality,Calculated 272 (280-300); Potassium 4.6 mEq/L (3.5-5.1); Sodium 128 mEq/L (136-145); Troponin I < 0.03 ng/mL (< 0.04); eGFR For African Americans > 60 (> 60); eGFR For Non-African Americans > 60 (> 60)
[2021-01-02 20:14] LABS: Platelet Estimate Marked Decrease (Normal)
[2021-01-02] MEDS ORDERED: Acetaminophen 325 MG TABLET PO ONE (20:27)
[2021-01-02] MEDS ORDERED: Cefepime HCl 2,000 MG in Water for inj. (sterile) 20 ML IVP STA (21:01)
[2021-01-02] MEDS ORDERED: Ringers Solution, Lactated 1,000 ML IVC SCH (23:45)
[2021-01-02] MEDS ORDERED: Naloxone 0.4 MG/ML INJ IVP PRN (23:52)
[2021-01-02] MEDS ORDERED: Ondansetron 4 MG/2 ML VIAL IVP PRN (23:52)
[2021-01-02] MEDS ORDERED: Acetaminophen 325 MG TABLET PO PRN (23:52)
[2021-01-02] MEDS ORDERED: *HR* Promethazine 25 MG/ML VIAL IM PRN (23:52)
[2021-01-03] MEDS: Cefepime HCl 2,000 MG in Water for inj. (sterile) 20 ML IVP SCH ×4 (00:28→23:58)
[2021-01-03] MEDS ORDERED: Melatonin 3 MG TABLET PO PRN (01:08)
[2021-01-03] MEDS: Sennosides/Docusate Sodium TABLET PO SCH ×3 (01:40→20:31)
[2021-01-03] MEDS ORDERED: *HR* Dextrose 50 % in Water (Vial) 50 ML VIAL IVP PRN ×2 (02:01→06:32)
[2021-01-03] MEDS ORDERED: Dextrose Gel 15 GM/37.5 ML TUBE PO PRN ×4 (02:01→06:32)
[2021-01-03] MEDS ORDERED: D5% in Water 1,000 ML IVC PRN ×2 (02:01→06:32)
[2021-01-03] MEDS ORDERED: Ringers Solution, Lactated 500 ML IVC ONE (02:08)
[2021-01-03 04:47] LABS: Red Cell Distribution Width 13.2 % (11.5-14.5)
[2021-01-03 04:50] LABS: Hematocrit 17.8 % (35.3-44.9); Immature Platelets 0.4 % (1.1-6.1); Lymphocytes # 0.6 K/mcL (0.6-4.6); Lymphocytes % 73.1 %; Mean Corpuscular HGB Conc 33.7 g/dL (31.6-35.5); Mean Corpuscular Hemoglobin 28.6 pg (28.0-33.3); Mean Corpuscular Volume 84.8 fL (83.0-100.0); Mean Platelet Volume 10.9 fL (9.4-12.4); Monocytes # 0.1 K/mcL (0.0-1.3); Monocytes % 14.1 %; Neutrophils # 0.1 K/mcL (1.6-8.9); Nucleated Red Blood Cells 2.6 /100 WBC (0); Segmented Neutrophils % 12.8 %
[2021-01-03 04:56] LABS: INR 1.2; Prothrombin Time 13.3 Seconds (9.4-12.1)
[2021-01-03 04:57] LABS: Platelet Count 5 K/mcL (140-400); White Blood Count 0.8 K/mcL (4.3-11.1)
[2021-01-03 05:10] LABS: Alanine Aminotransferase 4 Units/L (7-52); Albumin/Globulin Ratio 1.2 (1.1-2.2); Alkaline Phosphatase 55 Units/L (34-104); Aspartate Amino Transferase 4 Units/L (13-39); BUN/Creatinine Ratio 36 (6-26); Bilirubin,Total 0.6 mg/dL (0.3-1.0); Blood Urea Nitrogen 20 mg/dL (8-23); Calcium 8.9 mg/dL (8.6-10.3); Carbon Dioxide 22 mEq/L (23-29); Chloride 100 mEq/L (98-107); Globulin 2.6 g/dL (2.4-3.5); Glucose 105 mg/dL (70-105); Magnesium 0.8 mg/dL (1.6-2.6); Osmolality,Calculated 273 (280-300); Phosphorous 4.7 mg/dL (2.7-4.5); Potassium 4.7 mEq/L (3.5-5.1); Sodium 130 mEq/L (136-145); Total Protein 5.6 g/dL (6.4-8.9); eGFR For African Americans > 60 (> 60); eGFR For Non-African Americans > 60 (> 60)
[2021-01-03] MEDS ORDERED: 0.9 % Sodium Chloride 250 ML IVC SCH (05:15)
[2021-01-03 06:00] LABS: Platelet Estimate Marked Decrease (Normal); Poikilocytosis 1+ (Not Present)
[2021-01-03] MEDS: Doxycycline 100 MG in 0.9 % Sodium Chloride Mini Bag 100 ML IVPB SCH ×2 (06:00→17:20)
[2021-01-03 06:01] LABS: Anisocytosis 1+ (Not Present)
[2021-01-03] MEDS: Insulin LISPRO 300 UNITS/3 ML VIAL SUBQ SCH ×3 (06:18→17:41)
[2021-01-03] MEDS ORDERED: lisinopriL 20 MG TABLET PO SCH (09:00)
[2021-01-03] MEDS: diazePAM 5 MG TABLET PO SCH ×2 (09:21→20:31)
[2021-01-03] MEDS: Metoprolol XL (24 HR) Succ 50 MG TAB.ER.24H PO SCH (09:21)
[2021-01-03] MEDS: lisinopriL 10 MG TABLET PO SCH (09:21)
[2021-01-03] MEDS: Fluconazole 100 MG TABLET PO SCH (17:59)
[2021-01-03] MEDS: Sennosides 8.6 MG TABLET PO SCH (20:32)
[2021-01-03] MEDS: Megestrol Acetate 400 MG/10 ML UDC PO SCH (21:37)
[2021-01-04] MEDS: Insulin LISPRO 300 UNITS/3 ML VIAL SUBQ SCH ×5 (00:02→23:20)
[2021-01-04] MEDS: Doxycycline 100 MG in 0.9 % Sodium Chloride Mini Bag 100 ML IVPB SCH ×2 (05:30→16:31)
[2021-01-04] MEDS: Sennosides/Docusate Sodium TABLET PO SCH ×2 (08:52→20:46)
[2021-01-04] MEDS: Cefepime HCl 2,000 MG in Water for inj. (sterile) 20 ML IVP SCH ×3 (08:53→23:13)
[2021-01-04] MEDS: lisinopriL 10 MG TABLET PO SCH (08:53)
[2021-01-04] MEDS: Metoprolol XL (24 HR) Succ 50 MG TAB.ER.24H PO SCH (08:53)
[2021-01-04] MEDS: Fluconazole 100 MG TABLET PO SCH (08:53)
[2021-01-04] MEDS: diazePAM 5 MG TABLET PO SCH ×2 (08:53→20:46)
[2021-01-04] MEDS: Megestrol Acetate 400 MG/10 ML UDC PO SCH ×2 (08:55→20:46)
[2021-01-04] MEDS ORDERED: *HR* FentaNYL (PF) 100 MCG/2 ML VIAL IVP ONE (12:26)
[2021-01-04 13:02] LABS: Hemoglobin 7.2 g/dL (11.5-15.4); Mean Platelet Volume 10.5 fL (9.4-12.4)
[2021-01-04 13:03] LABS: Hematocrit 20.5 % (35.3-44.9); Immature Platelets 0.5 % (1.1-6.1); Lymphocytes % 72.4 %; Mean Corpuscular HGB Conc 35.1 g/dL (31.6-35.5); Mean Corpuscular Hemoglobin 29.3 pg (28.0-33.3); Mean Corpuscular Volume 83.3 fL (83.0-100.0); Monocytes # 0.2 K/mcL (0.0-1.3); Monocytes % 17.2 %; Neutrophils # 0.1 K/mcL (1.6-8.9); Red Blood Count 2.46 M/mcL (3.82-4.97); Segmented Neutrophils % 10.4 %
[2021-01-04 13:09] LABS: Lymphocytes # 0.7 K/mcL (0.6-4.6)
[2021-01-04 13:12] LABS: Platelet Count 26 K/mcL (140-400); White Blood Count 0.9 K/mcL (4.3-11.1)
[2021-01-04 13:19] LABS: BUN/Creatinine Ratio 33 (6-26); Blood Urea Nitrogen 16 mg/dL (8-23); Calcium 9.1 mg/dL (8.6-10.3); Carbon Dioxide 23 mEq/L (23-29); Chloride 100 mEq/L (98-107); Glucose 149 mg/dL (70-105); Osmolality,Calculated 272 (280-300); Potassium 4.1 mEq/L (3.5-5.1); Sodium 129 mEq/L (136-145); eGFR For African Americans > 60 (> 60); eGFR For Non-African Americans > 60 (> 60)
[2021-01-04 13:51] LABS: Platelet Estimate Marked Decrease (Normal); Reactive Lymphocytes Present (Not Present)
[2021-01-04] MEDS: Sennosides 8.6 MG TABLET PO SCH (20:47)
[2021-01-04] MEDS: Melatonin 3 MG TABLET PO PRN (20:50)
[2021-01-05] MEDS: Doxycycline 100 MG in 0.9 % Sodium Chloride Mini Bag 100 ML IVPB SCH ×2 (05:13→17:53)
[2021-01-05 05:40] LABS: Hemoglobin 6.9 g/dL (11.5-15.4)
[2021-01-05 05:42] LABS: Hematocrit 19.6 % (35.3-44.9); Immature Granulocytes % 1.2 % (0-4); Immature Platelets 0.9 % (1.1-6.1); Lymphocytes # 0.6 K/mcL (0.6-4.6); Lymphocytes % 74.1 %; Mean Corpuscular HGB Conc 35.2 g/dL (31.6-35.5); Mean Corpuscular Hemoglobin 29.1 pg (28.0-33.3); Mean Corpuscular Volume 82.7 fL (83.0-100.0); Mean Platelet Volume 9.4 fL (9.4-12.4); Monocytes # 0.1 K/mcL (0.0-1.3); Monocytes % 14.8 %; Neutrophils # 0.1 K/mcL (1.6-8.9); Red Blood Count 2.37 M/mcL (3.82-4.97); Red Cell Distribution Width 13.2 % (11.5-14.5); Segmented Neutrophils % 9.9 %
[2021-01-05 05:44] LABS: BUN/Creatinine Ratio 31 (6-26); Blood Urea Nitrogen 15 mg/dL (8-23); Calcium 9.2 mg/dL (8.6-10.3); Carbon Dioxide 23 mEq/L (23-29); Chloride 103 mEq/L (98-107); Glucose 119 mg/dL (70-105); Osmolality,Calculated 276 (280-300); Potassium 4.4 mEq/L (3.5-5.1); Sodium 132 mEq/L (136-145); eGFR For African Americans > 60 (> 60); eGFR For Non-African Americans > 60 (> 60)
[2021-01-05 05:48] LABS: Platelet Count 24 K/mcL (140-400); White Blood Count 0.8 K/mcL (4.3-11.1)
[2021-01-05] MEDS: Insulin LISPRO 300 UNITS/3 ML VIAL SUBQ SCH ×5 (06:07→20:48)
[2021-01-05 06:08] LABS: Platelet Estimate Marked Decrease (Normal); Reactive Lymphocytes Present (Not Present)
[2021-01-05] MEDS: lisinopriL 10 MG TABLET PO SCH (08:30)
[2021-01-05] MEDS: Fluconazole 100 MG TABLET PO SCH (08:30)
[2021-01-05] MEDS: Sennosides/Docusate Sodium TABLET PO SCH ×2 (08:30→20:48)
[2021-01-05] MEDS: Metoprolol XL (24 HR) Succ 50 MG TAB.ER.24H PO SCH (08:30)
[2021-01-05] MEDS: diazePAM 5 MG TABLET PO SCH ×2 (08:30→20:48)
[2021-01-05] MEDS: Megestrol Acetate 400 MG/10 ML UDC PO SCH ×2 (08:30→20:48)
[2021-01-05] MEDS: Cefepime HCl 2,000 MG in Water for inj. (sterile) 20 ML IVP SCH ×2 (08:31→17:52)
[2021-01-05] MEDS: Melatonin 3 MG TABLET PO PRN (20:48)
[2021-01-05] MEDS: Sennosides 8.6 MG TABLET PO SCH (20:49)
[2021-01-06] MEDS: Cefepime HCl 2,000 MG in Water for inj. (sterile) 20 ML IVP SCH ×3 (00:13→17:29)
[2021-01-06] MEDS: Doxycycline 100 MG in 0.9 % Sodium Chloride Mini Bag 100 ML IVPB SCH ×2 (04:59→17:30)
[2021-01-06 05:45] LABS: Hematocrit 17.5 % (35.3-44.9); Hemoglobin 6.1 g/dL (11.5-15.4); Immature Granulocytes % 5.7 % (0-4); Immature Platelets 0.7 % (1.1-6.1); Lymphocytes # 0.5 K/mcL (0.6-4.6); Lymphocytes % 72.9 %; Mean Corpuscular HGB Conc 34.9 g/dL (31.6-35.5); Mean Corpuscular Hemoglobin 29.3 pg (28.0-33.3); Mean Corpuscular Volume 84.1 fL (83.0-100.0); Mean Platelet Volume 10.3 fL (9.4-12.4); Monocytes # 0.1 K/mcL (0.0-1.3); Monocytes % 14.3 %; Neutrophils # 0.1 K/mcL (1.6-8.9); Red Blood Count 2.08 M/mcL (3.82-4.97); Red Cell Distribution Width 13.4 % (11.5-14.5); Segmented Neutrophils % 7.1 %
[2021-01-06 05:47] LABS: White Blood Count 0.7 K/mcL (4.3-11.1)
[2021-01-06 05:48] LABS: Platelet Count 10 K/mcL (140-400)
[2021-01-06 05:53] LABS: BUN/Creatinine Ratio 36 (6-26); Blood Urea Nitrogen 15 mg/dL (8-23); Carbon Dioxide 22 mEq/L (23-29); Chloride 104 mEq/L (98-107); Glucose 123 mg/dL (70-105); Osmolality,Calculated 276 (280-300); Potassium 4.3 mEq/L (3.5-5.1); Sodium 132 mEq/L (136-145); eGFR For African Americans > 60 (> 60); eGFR For Non-African Americans > 60 (> 60)
[2021-01-06 06:04] LABS: Anisocytosis 1+ (Not Present); Platelet Estimate Marked Decrease (Normal); Poikilocytosis 1+ (Not Present); Toxic Granulation Present (Not Present)
[2021-01-06] MEDS: Insulin LISPRO 300 UNITS/3 ML VIAL SUBQ SCH ×4 (08:29→20:15)
[2021-01-06] MEDS: Fluconazole 100 MG TABLET PO SCH (10:28)
[2021-01-06] MEDS: lisinopriL 10 MG TABLET PO SCH (10:29)
[2021-01-06] MEDS: Metoprolol XL (24 HR) Succ 50 MG TAB.ER.24H PO SCH (10:29)
[2021-01-06] MEDS: Sennosides/Docusate Sodium TABLET PO SCH ×2 (10:29→20:14)
[2021-01-06] MEDS: diazePAM 5 MG TABLET PO SCH ×2 (10:29→20:14)
[2021-01-06] MEDS: Megestrol Acetate 400 MG/10 ML UDC PO SCH ×2 (10:37→20:15)
[2021-01-06] MEDS: Melatonin 3 MG TABLET PO PRN (20:14)
[2021-01-06] MEDS: Sennosides 8.6 MG TABLET PO SCH (20:15)
[2021-01-07] MEDS: Cefepime HCl 2,000 MG in Water for inj. (sterile) 20 ML IVP SCH ×4 (00:35→23:54)
[2021-01-07] MEDS: Doxycycline 100 MG in 0.9 % Sodium Chloride Mini Bag 100 ML IVPB SCH ×2 (05:01→17:04)
[2021-01-07 05:38] LABS: Red Blood Count 3.19 M/mcL (3.82-4.97); Red Cell Distribution Width 13.5 % (11.5-14.5)
[2021-01-07 05:40] LABS: Hematocrit 26.5 % (35.3-44.9); Hemoglobin 9.1 g/dL (11.5-15.4); Immature Platelets 1.7 % (1.1-6.1); Lymphocytes # 0.6 K/mcL (0.6-4.6); Lymphocytes % 74.1 %; Mean Corpuscular HGB Conc 34.3 g/dL (31.6-35.5); Mean Corpuscular Hemoglobin 28.5 pg (28.0-33.3); Mean Corpuscular Volume 83.1 fL (83.0-100.0); Mean Platelet Volume 9.2 fL (9.4-12.4); Monocytes # 0.1 K/mcL (0.0-1.3); Monocytes % 13.6 %; Neutrophils # 0.1 K/mcL (1.6-8.9); Segmented Neutrophils % 12.3 %
[2021-01-07 05:53] LABS: Platelet Count 16 K/mcL (140-400); White Blood Count 0.8 K/mcL (4.3-11.1)
[2021-01-07 05:54] LABS: BUN/Creatinine Ratio 35 (6-26); Blood Urea Nitrogen 19 mg/dL (8-23); Calcium 9.2 mg/dL (8.6-10.3); Carbon Dioxide 21 mEq/L (23-29); Chloride 105 mEq/L (98-107); Glucose 127 mg/dL (70-105); Osmolality,Calculated 282 (280-300); Potassium 4.3 mEq/L (3.5-5.1); Sodium 134 mEq/L (136-145); eGFR For African Americans > 60 (> 60); eGFR For Non-African Americans > 60 (> 60)
[2021-01-07 06:10] LABS: Anisocytosis 1+ (Not Present); Microcytosis Present (Not Present); Reactive Lymphocytes Present (Not Present)
[2021-01-07 06:11] LABS: Platelet Estimate Marked Decrease (Normal)
[2021-01-07] MEDS: Insulin LISPRO 300 UNITS/3 ML VIAL SUBQ SCH ×4 (07:12→21:29)
[2021-01-07] MEDS: Fluconazole 100 MG TABLET PO SCH (08:11)
[2021-01-07] MEDS: Megestrol Acetate 400 MG/10 ML UDC PO SCH ×2 (08:11→19:44)
[2021-01-07] MEDS: lisinopriL 10 MG TABLET PO SCH (08:12)
[2021-01-07] MEDS: diazePAM 5 MG TABLET PO SCH ×2 (08:12→19:43)
[2021-01-07] MEDS: Sennosides/Docusate Sodium TABLET PO SCH ×2 (08:12→19:43)
[2021-01-07] MEDS: Metoprolol XL (24 HR) Succ 50 MG TAB.ER.24H PO SCH (08:12)
[2021-01-07] MEDS: Sennosides 8.6 MG TABLET PO SCH (19:32)
[2021-01-07] MEDS: *HR* HYDROcodone/Acet 5/325 mg TABLET PO PRN (19:43)
[2021-01-07] MEDS: Melatonin 3 MG TABLET PO PRN (19:44)
[2021-01-08 04:19] LABS: Red Cell Distribution Width 13.5 % (11.5-14.5)
[2021-01-08 04:21] LABS: Hematocrit 28.3 % (35.3-44.9); Hemoglobin 9.5 g/dL (11.5-15.4); Immature Platelets 1.7 % (1.1-6.1); Lymphocytes # 0.6 K/mcL (0.6-4.6); Lymphocytes % 71.1 %; Mean Corpuscular HGB Conc 33.6 g/dL (31.6-35.5); Mean Corpuscular Hemoglobin 28.7 pg (28.0-33.3); Mean Corpuscular Volume 85.5 fL (83.0-100.0); Mean Platelet Volume 10.5 fL (9.4-12.4); Monocytes # 0.1 K/mcL (0.0-1.3); Monocytes % 14.4 %; Neutrophils # 0.1 K/mcL (1.6-8.9); Red Blood Count 3.31 M/mcL (3.82-4.97); Segmented Neutrophils % 14.5 %
[2021-01-08 04:37] LABS: BUN/Creatinine Ratio 39 (6-26); Blood Urea Nitrogen 21 mg/dL (8-23); Calcium 9.2 mg/dL (8.6-10.3); Carbon Dioxide 18 mEq/L (23-29); Chloride 104 mEq/L (98-107); Glucose 139 mg/dL (70-105); Osmolality,Calculated 277 (280-300); Potassium 4.7 mEq/L (3.5-5.1); Sodium 131 mEq/L (136-145); eGFR For African Americans > 60 (> 60); eGFR For Non-African Americans > 60 (> 60)
[2021-01-08 04:55] LABS: Platelet Count 12 K/mcL (140-400); White Blood Count 0.9 K/mcL (4.3-11.1)
[2021-01-08] MEDS: Doxycycline 100 MG in 0.9 % Sodium Chloride Mini Bag 100 ML IVPB SCH (05:11)
[2021-01-08 05:14] LABS: Microcytosis Present (Not Present); Platelet Estimate Marked Decrease (Normal); Poikilocytosis 1+ (Not Present); Reactive Lymphocytes Present (Not Present)
[2021-01-08] MEDS: Insulin LISPRO 300 UNITS/3 ML VIAL SUBQ SCH ×2 (07:58→12:33)
[2021-01-08] MEDS: Megestrol Acetate 400 MG/10 ML UDC PO SCH (08:21)
[2021-01-08] MEDS: Cefepime HCl 2,000 MG in Water for inj. (sterile) 20 ML IVP SCH (08:21)
[2021-01-08] MEDS: diazePAM 5 MG TABLET PO SCH (08:22)
[2021-01-08] MEDS: Metoprolol XL (24 HR) Succ 50 MG TAB.ER.24H PO SCH (08:22)
[2021-01-08] MEDS: Fluconazole 100 MG TABLET PO SCH (08:22)
[2021-01-08] MEDS: lisinopriL 10 MG TABLET PO SCH (08:22)
[2021-01-08] MEDS: Sennosides/Docusate Sodium TABLET PO SCH (08:22)
[2021-01-08] MEDS: *HR* HYDROcodone/Acet 5/325 mg TABLET PO PRN (08:27)
[2021-01-08 11:35] VITALS: BP 116/78
[2021-01-08 13:08] LABS: Adenovirus Not Detected (Not Detect); Bordetella Pertussis Not Detected (Not Detect); Chlamydophila pneumoniae Not Detected (Not Detect); Coronavirus 229E Not Detected (Not Detect); Coronavirus HKU1 Not Detected (Not Detect); Coronavirus NL63 Not Detected (Not Detect); Coronavirus OC43 Not Detected (Not Detect); Human Metapneumovirus Not Detected (Not Detect); Human Rhinovirus/Enterovirus Not Detected (Not Detect); Influenza A Subtype 2009 H1 Not Detected (Not Detect); Influenza B Not Detected (Not Detect); Mycoplasma pneumoniae Not Detected (Not Detect); Parainfluenza Virus 1 Not Detected (Not Detect); Parainfluenza Virus 2 Not Detected (Not Detect); Parainfluenza Virus 3 Not Detected (Not Detect); Parainfluenza Virus 4 Not Detected (Not Detect); Respiratory Syncytial Virus Not Detected (Not Detect); SARS-CoV-2 Not Detected (Not Detect)
== END 2021-01-08 14:13 | DRG 871 ==
LOC: 3BNU 18:35 → EMEROOARM 18:35 → 3BNU 01-03 01:13 → SUATTDRO 01-04 18:13
PROVIDERS: ADMIT Internal Medicine; ATTEND Family Medicine

== ENCOUNTER 2021-01-20 17:17 | Observation (INO) ==
[2021-01-20] MEDS ORDERED: Ringers Solution, Lactated 1,000 ML ONE (17:22)
[2021-01-20] MEDS ORDERED: 0.9 % Sodium Chloride 1,000 ML IVC ONE (17:25)
[2021-01-20] MEDS ORDERED: Ringers Solution, Lactated 1,000 ML IVC ONE (17:45)
[2021-01-20 17:47] LABS: Hematocrit 20.3 % (35.3-44.9); Hemoglobin 6.5 g/dL (11.5-15.4); Immature Granulocytes % 17.8 % (0-4); Lymphocytes # 0.2 K/mcL (0.6-4.6); Mean Corpuscular Hemoglobin 28.5 pg (28.0-33.3); Monocytes # 0.1 K/mcL (0.0-1.3); Monocytes % 15.6 %; Neutrophils # 0.1 K/mcL (1.6-8.9); Red Blood Count 2.28 M/mcL (3.82-4.97); Red Cell Distribution Width 14.1 % (11.5-14.5); Segmented Neutrophils % 26.6 %
[2021-01-20 17:53] LABS: Platelet Count 5 K/mcL (140-400); White Blood Count 0.5 K/mcL (4.3-11.1)
[2021-01-20] MEDS ORDERED: Piperacillin/Tazobactam 3.375 GM in Water for inj. (sterile) 20 ML IVP ONE (17:57)
[2021-01-20] MEDS ORDERED: Vancomycin 1,250 MG/262.5 ML IV.SOLN IVPB ONE (17:57)
[2021-01-20 18:08] LABS: Dohle Bodies Present (Not Present); Platelet Estimate Marked Decrease (Normal)
[2021-01-20 18:12] LABS: INR 1.4; Prothrombin Time 16.3 Seconds (9.4-12.1)
[2021-01-20 18:14] LABS: Activated Partial Thrombo Time 27.7 Seconds (26.0-36.0); Alanine Aminotransferase 4 Units/L (7-52); Albumin/Globulin Ratio 0.9 (1.1-2.2); Alkaline Phosphatase 64 Units/L (34-104); Aspartate Amino Transferase 6 Units/L (13-39); BUN/Creatinine Ratio 26 (6-26); Bilirubin,Direct 0.2 mg/dL (0.0-0.2); Bilirubin,Indirect 0.5 mg/dL (0.0-1.0); Bilirubin,Total 0.7 mg/dL (0.3-1.0); Blood Urea Nitrogen 58 mg/dL (8-23); Calcium 8.8 mg/dL (8.6-10.3); Carbon Dioxide 18 mEq/L (23-29); Chloride 98 mEq/L (98-107); Globulin 3.3 g/dL (2.4-3.5); Glucose 172 mg/dL (70-105); Magnesium 1.2 mg/dL (1.6-2.6); Osmolality,Calculated 290 (280-300); Potassium 5.7 mEq/L (3.5-5.1); Sodium 130 mEq/L (136-145); Total Protein 6.3 g/dL (6.4-8.9); Troponin I < 0.03 ng/mL (< 0.04); eGFR For African Americans 26 (> 60); eGFR For Non-African Americans 22 (> 60)
[2021-01-20] MEDS ORDERED: 0.9 % Sodium Chloride 500 ML ONE (18:58)
[2021-01-20] MEDS ORDERED: 0.9 % Sodium Chloride 250 ML ONE ×2 (19:25→19:45)
[2021-01-20] MEDS ORDERED: *HR* Norepinephrine 4 MG/4 ML VIAL IVC ONE (19:26)
[2021-01-20] MEDS ORDERED: Ringers Solution, Lactated 1,000 ML IVC SCH (19:30)
[2021-01-20] MEDS ORDERED: Norepinephrine 4 MG/254 ML IV.SOLN IVC SCH (19:30)
[2021-01-20] MEDS ORDERED: Acetaminophen 325 MG TABLET PO PRN (22:05)
[2021-01-20] MEDS ORDERED: 0.9 % Sodium Chloride 1,000 ML IVC SCH (22:30)
[2021-01-21] MEDS ORDERED: Melatonin 3 MG TABLET PO PRN (01:46)
[2021-01-21] MEDS ORDERED: polyethylene glycoL 3350 17 GM POWD.PACK PO PRN (01:46)
[2021-01-21] MEDS ORDERED: Acetaminophen 325 MG TABLET PO PRN (01:46)
[2021-01-21] MEDS ORDERED: Dextrose Gel 15 GM/37.5 ML TUBE PO PRN ×2 (02:06)
[2021-01-21] MEDS ORDERED: *HR* Dextrose 50 % in Water (Vial) 50 ML VIAL IVP PRN (02:06)
[2021-01-21] MEDS ORDERED: D5% in Water 1,000 ML IVC PRN (02:06)
[2021-01-21] MEDS ORDERED: *HR* LORazepam 2 MG/ML VIAL IVP ONE (02:16)
[2021-01-21 02:22] LABS: Hematocrit 21.1 % (35.3-44.9); Hemoglobin 6.9 g/dL (11.5-15.4); Mean Corpuscular HGB Conc 32.7 g/dL (31.6-35.5)
[2021-01-21 02:23] LABS: Immature Granulocytes % 6.9 % (0-4); Immature Platelets 0.4 % (1.1-6.1); Lymphocytes # 0.1 K/mcL (0.6-4.6); Lymphocytes % 37.9 %; Mean Corpuscular Volume 88.7 fL (83.0-100.0); Mean Platelet Volume 9.3 fL (9.4-12.4); Monocytes # 0.1 K/mcL (0.0-1.3); Monocytes % 20.7 %; Neutrophils # 0.1 K/mcL (1.6-8.9); Red Blood Count 2.38 M/mcL (3.82-4.97); Red Cell Distribution Width 14.1 % (11.5-14.5); Segmented Neutrophils % 34.5 %
[2021-01-21 02:36] LABS: Platelet Count 15 K/mcL (140-400); White Blood Count 0.3 K/mcL (4.3-11.1)
[2021-01-21 02:49] LABS: Calcium 8.2 mg/dL (8.6-10.3); Potassium 5.2 mEq/L (3.5-5.1)
[2021-01-21 02:53] LABS: Platelet Estimate Marked Decrease (Normal)
[2021-01-21] MEDS ORDERED: Morphine Sulfate 2 MG/ML SYRINGE IVP ONE (02:53)
[2021-01-21] MEDS ORDERED: 0.9 % Sodium Chloride 250 ML ONE ×2 (03:21→06:24)
[2021-01-21] MEDS ORDERED: *HR* Metoprolol 5 MG/5 ML VIAL IVP ONE (05:56)
[2021-01-21] MEDS ORDERED: Piperacillin/Tazobactam 3.375 GM in 0.9 % Sodium Chloride Mini Bag 100 ML IVPB SCH (06:00)
[2021-01-21 06:46] VITALS: BP 104/75
[2021-01-21] MEDS ORDERED: Insulin LISPRO 300 UNITS/3 ML VIAL SUBQ SCH (07:30)
[2021-01-21] MEDS ORDERED: Fluconazole 100 MG TABLET PO SCH (09:00)
[2021-01-21] MEDS ORDERED: Azithromycin 500 MG in 0.9 % Sodium Chloride 250 ML IVPB SCH (09:00)
[2021-01-21] MEDS ORDERED: Metoprolol XL (24 HR) Succ 25 MG TAB.ER.24H PO SCH (09:00)
[2021-01-21] MEDS ORDERED: *HR* LORazepam 2 MG/ML VIAL IVP PRN (09:46)
[2021-01-21] MEDS ORDERED: Morphine Sulfate 2 MG/ML SYRINGE IVP PRN (09:46)
[2021-01-21] MEDS ORDERED: Sennosides 8.6 MG TABLET PO SCH (21:00)
== END 2021-01-21 12:01 | disposition hospice, inpatient (51) ==
LOC: EMEROOARM 17:17 → ICNU 17:17 → SUATTDRO 21:44 → 2ANU 21:50
PROVIDERS: ADMIT Student in an Organized Health Care Education/Training Program; ATTEND Pharmacist

== ENCOUNTER 2021-01-21 10:24 | Inpatient (IN) ==
[2021-01-21] MEDS ORDERED: Atropine 1% Opth Drops 100 DROP/5 ML BOTTLE SL PRN (10:31)
[2021-01-21] MEDS ORDERED: Ipratropium/Albuterol Neb 3 ML IH PRN (10:31)
[2021-01-21] MEDS ORDERED: Bisacodyl 10 MG RECTAL SUPPOSITORY RC PRN (10:31)
[2021-01-21] MEDS ORDERED: Acetaminophen 650 MG RECTAL SUPP RC PRN (10:31)
[2021-01-21] MEDS ORDERED: *HR* FentaNYL (PF) 100 MCG/2 ML VIAL IVP PRN (13:03)
[2021-01-21] MEDS ORDERED: Morphine Sulfate 2 MG/ML SYRINGE IVP PRN (13:34)
[2021-01-21] MEDS: Haloperidol Lactate 5 MG/ML VIAL IVP PRN ×2 (14:47→19:47)
[2021-01-21] MEDS: *HR* LORazepam 2 MG/ML VIAL IVP PRN (17:40)
[2021-01-21] MEDS ORDERED: Haloperidol Lactate 5 MG/ML VIAL IVP PRN (22:48)
[2021-01-21] MEDS: Haloperidol Lactate 5 MG/ML VIAL IVP SCH (23:15)
[2021-01-22] MEDS: Morphine Sulfate 2 MG/ML SYRINGE IVP PRN ×4 (01:03→08:59)
[2021-01-22 03:20] VITALS: BP 102/57
[2021-01-22] MEDS: *HR* LORazepam 2 MG/ML VIAL IVP PRN ×2 (03:59→08:06)
[2021-01-22] MEDS: Haloperidol Lactate 5 MG/ML VIAL IVP SCH ×2 (04:58→10:48)
[2021-01-22] MEDS ORDERED: *HR* LORazepam 2 MG/ML VIAL IVP PRN (09:29)
[2021-01-22] MEDS ORDERED: Scopolamine Patch 1.5 MG PATCH.TD72 TD SCH (09:30)
[2021-01-22] MEDS ORDERED: Morphine Sulfate 2 MG/ML SYRINGE IVP PRN (09:32)
[2021-01-22] MEDS: *HR* LORazepam Oral Conc 2 MG/ML SL SCH ×2 (10:47→13:52)
[2021-01-22] MEDS: Morphine Sulfate Oral CONC 10 MG/0.5 ML ORAL.SYG SL SCH ×2 (10:48→14:26)
== END 2021-01-22 15:06 | disposition expired | DRG 951 ==
LOC: 2ANU 12:04
PROVIDERS: ADMIT Internal Medicine; ATTEND Internal Medicine